=== PATIENT | female | born 1970 | race American Indian/Alaskan Native ===

== ENCOUNTER 2017-04-29 08:47 | Emergency (ER) | payer SELFPAY ==
[2017-04-29 09:10] VITALS: BP 131/57
[2017-04-29 09:33] LABS: Basophils % (Auto) 0.8 % (0.0-1.8); Eosinophils % (Auto) 0.8 % (0.0-4.3); Hematocrit 39.6 % (30.3-42.9); Mean Corpuscular HGB Conc 33 % (30-34); Mean Corpuscular Hemoglobin 28 pg (28-32); Mean Corpuscular Volume 86 fl (79-97); Platelet Count 237 K/mm3 (140-440); Red Blood Count 4.63 M/mm3 (3.65-5.03); Red Cell Distribution Width 14.5 % (13.2-15.2); White Blood Count 4.4 K/mm3 (4.5-11.0)
[2017-04-29 09:52] LABS: Anion Gap 17 mmol/L; BUN/Creatinine Ratio 20; Blood Urea Nitrogen 18 mg/dL (7-17); Calcium 8.6 mg/dL (8.4-10.2); Carbon Dioxide 24 mmol/L (22-30); Chloride 101.1 mmol/L (98-107); Glucose 93 mg/dL (65-100); Potassium 3.9 mmol/L (3.6-5.0); Sodium 138 mmol/L (137-145)
[2017-04-29] MEDS ORDERED: TORADOL IM ONE (11:47)
--- NOTE | 2017-04-29 11:53 | Emergency Department Report ---
Chief Complaint: Chest Pain Stated Complaint: RIGHT SHOULDER PAIN Time Seen by Provider: 04/29/17 11:47 - HPI History of Present Illness: Patient is a 46-year-old female with no significant past medical history who is presenting with atypical right-sided chest and shoulder pain. Patient states that when she lifts her arm she feels shocking pain that brings her "to her knees". Patient states this pain woke her up. Patient states the pain is progress 7 out of 10 in severity. Patient denies any chest heaviness shortness of breath nausea vomiting fever cough pleuritic pain at this time. - ROS Review of Systems: Review of systems normal except for those elements in HPI - Exam Vital Signs: Vital Signs 04/29/17 09:05 Temperature 98.4 F Pulse Rate 73 Respiratory 18 Rate Blood Pressure 131/57 O2 Sat by Pulse 98 Oximetry Physical Exam: Focused physical exam patient has tenderness to the right trapezius right anterior shoulder range of motion is limited secondary to pain. Lungs are clear to auscultation bilateral. Heart tones are normal S1-S2 no murmurs gallops or rubs. Abdomen is soft nontender MSE screening note: Focused history and physical exam performed. Due to findings the following was ordered: Troponin was negative EKG was within normal limits please see MLP dictation for complete EKG interpretation. Patient be given a Toradol shot and will be monitored. Patient's pain most likely musculoskeletal in origin. ED Medical Decision Making - Lab Data Result diagrams: 04/29/17 09:18 04/29/17 09:18 ED Disposition for MSE Condition: Stable Referrals: PRIMARY CARE [Primary Care Provider] - 3-5 Days
--- NOTE | 2017-04-29 12:07 | Emergency Department Report ---
ED Chest Pain HPI - General Chief Complaint: Chest Pain Stated Complaint: RIGHT SHOULDER PAIN Time Seen by Provider: 04/29/17 11:47 Source: patient Mode of arrival: Ambulatory Limitations: No Limitations - History of Present Illness Initial Comments: pt is a 46 y/o aaf with hx htn of who presents for right shoulder and chest wall pain x this am as I woke up with right arm and shoulder pain aching sore, pain exacerbated movement and lifting heavy objects there no cp no n/v no dizziness no h/a no lightheadedness . Onset/Timin -: days(s) Onset: awoke with symptoms Pain Location: right chest, other (right shoulder ) Pain Radiation: RUE Severity: moderate Severity scale (0 -10): 8 Quality: other (spasm) Consistency: intermittent Improves With: rest Worsens With: movement Treatments Prior to Arrival: none Aspirin use within the Past 7 Days: (0) No - Related Data On Oral Contraceptives: No Home Medications Medication Instructions Recorded Confirmed Last Taken Levothyroxine [Synthroid] 50 mcg PO QAM 03/31/15 03/31/15 Unknown Loratadine [Claritin] 10 mg PO DAILY 03/31/15 03/31/15 Unknown Previous Rx's Medication Instructions Recorded Last Taken Type Cyclobenzaprine [Flexeril] 10 mg PO Q8H PRN #21 tablet 04/01/15 Unknown Rx HYDROcodone/APAP 7.5-325 [[place] 1 each PO Q6HR PRN #20 tablet 04/01/15 Unknown Rx 7.5/325] Cyclobenzaprine [Flexeril] 10 mg PO BID PRN #20 tablet 04/29/17 Unknown Rx Naproxen 500 mg PO BID PRN #30 tablet 04/29/17 Unknown Rx Allergies Allergy/AdvReac Type Severity Reaction Status Date / Time Sulfa (Sulfonamide AdvReac DIFFICULTY Verified 04/01/15 01:21 Antibiotics) IN [facility] Heart Score - HEART Score History: Slightly suspicious EKG: Normal Age: 45-65 Risk factors: 1-2 risk factors Troponin: < normal limit (heart score 2) HEART Score: 2 ED Review of Systems ROS: Stated complaint: RIGHT SHOULDER PAIN Other details as noted in HPI Constitutional: denies: chills, fever Eyes: denies: eye pain, eye discharge, vision change ENT: denies: ear pain, throat pain Respiratory: denies: cough, shortness of breath, wheezing Cardiovascular: denies: chest pain, palpitations Endocrine: no symptoms reported Gastrointestinal: denies: abdominal pain, nausea, diarrhea Genitourinary: denies: urgency, dysuria, discharge Musculoskeletal: denies: back pain, joint swelling, arthralgia Skin: denies: rash, lesions Neurological: denies: headache, weakness, paresthesias Psychiatric: denies: anxiety, depression Hematological/Lymphatic: denies: easy bleeding, easy bruising ED Past Medical Hx - Past Medical History Previous Medical History?: Yes Hx Hypertension: Yes Additional medical history: Heart Murmur, HYPOTHYROIDSIM - Surgical History Past Surgical History?: Yes Additional Surgical History: c section - Social History Smoking Status: Never Smoker Substance Use Type: None - Medications Home Medications: Home Medications Medication Instructions Recorded Confirmed Last Taken Type Levothyroxine [Synthroid] 50 mcg PO QAM 03/31/15 03/31/15 Unknown History Loratadine [Claritin] 10 mg PO DAILY 03/31/15 03/31/15 Unknown History Cyclobenzaprine [Flexeril] 10 mg PO Q8H PRN #21 tablet 04/01/15 Unknown Rx HYDROcodone/APAP 7.5-325 [[place] 1 each PO Q6HR PRN #20 tablet 04/01/15 Unknown Rx 7.5/325] Cyclobenzaprine [Flexeril] 10 mg PO BID PRN #20 tablet 04/29/17 Unknown Rx Naproxen 500 mg PO BID PRN #30 tablet 04/29/17 Unknown Rx ED Physical Exam - General Limitations: No Limitations General appearance: alert, in no apparent distress - Head Head exam: Present: atraumatic, normocephalic - Eye Eye exam: Present: normal appearance, PERRL, EOMI Pupils: Present: normal accommodation - ENT ENT exam: Present: mucous membranes moist - Neck Neck exam: Present: normal inspection, full ROM. Absent: lymphadenopathy, thyromegaly - Respiratory Respiratory exam: Present: normal lung sounds bilaterally. Absent: respiratory distress, wheezes, stridor, chest wall tenderness - Cardiovascular Cardiovascular Exam: Present: regular rate, normal rhythm, normal heart sounds. Absent: systolic murmur, diastolic murmur, rubs, gallop - Expanded Cardiovascular Exam Expanded Peripheral pulses: 2+: Carotid (R), Carotid (L), Radial (R), Radial (L), Posterior Tibialis (R), Posterior Tibialis (L), Dorsalis Pedis (R), Dorsalis Pedis (L) - GI/Abdominal GI/Abdominal exam: Present: soft, normal bowel sounds. Absent: distended, tenderness, guarding, rebound, rigid, mass, bruit - Rectal Rectal exam: Present: deferred - Extremities Exam Extremities exam: Present: normal inspection, tenderness (right lateral shoulder ), normal capillary refill. Absent: full ROM, pedal edema, calf tenderness - Expanded Upper Extremity Exam Right Shoulder Exam: Present: normal inspection, full ROM, tenderness (right lateral no erythema no ecchymosis no deformity ). Absent: swelling, abrasion, laceration, ecchymosis, deformity, crepidus, dislocation, erythema, tenderness over AC joint Upper Arm exam: Present: normal inspection, full ROM Elbow exam: Present: normal inspection, full ROM Forearm Wrist exam: Present: normal inspection, full ROM Hand Wrist exam: Present: normal inspection, full ROM. Absent: tenderness Neuro motor exam: Present: wrist extension intact, thumb opposition intact, thumb IP flexion intact, thumb adduction intact, fingers 2-5 abduction intact Neurosensory exam: Present: 2-point discrimination, radial nerve intact, ulnar nerve intact, median nerve intact Vascular: Present: normal capillary refill, radial pulse, brachial pulse, ulnar pulse. Absent: vascular compromise, Pallo, pulse deficit radial art, pulse deficit ulnar art, pulse deficit brachial art - Back Exam Back exam: Present: normal inspection, full ROM, tenderness. Absent: CVA tenderness (R), CVA tenderness (L), muscle spasm, paraspinal tenderness, vertebral tenderness - Neurological Exam Neurological exam: Present: alert, oriented X3, CN II-XII intact, normal gait - Psychiatric Psychiatric exam: Present: normal affect, normal mood - Skin Skin exam: Present: warm, dry, intact, normal color. Absent: rash ED Course Vital Signs 04/29/17 09:05 Temperature 98.4 F Pulse Rate 73 Respiratory 18 Rate Blood Pressure 131/57 O2 Sat by Pulse 98 Oximetry MCKAY score - Mckay Score Age > 65: (0) No Aspirin use within the Past 7 Days: (0) No 3 or more CAD Risk Factors: (1) Yes 2 or more Angina events in past 24 hrs: (0) No Known CAD with more than 50% Stenosis: (0) No Elevated Cardiac Markers: (0) No ST Deviation Greater than 0.5mm: (0) No MCKAY Score: 1 ED Medical Decision Making - Lab Data Result diagrams: 04/29/17 09:18 04/29/17 09:18 - EKG Data EKG shows normal: sinus rhythm Rate: normal - EKG Data When compared to previous EKG there are: previous EKG unavailable Interpretation: normal EKG - Medical Decision Making pt present for what appears to be right shoulder musculoskeltal pain right shoulder sudden onset radiating to right upper chest wall pain exacerbated by movement pt denies sob no n/v no dizziness no light headeness exam: right lateral shoulder muscle pain rom intact no deformity no swelling arm drop and open can intact EKG NSR no ectopy NSTEMI, labs normal trop normal, heart score 2 , mckay:1 pain is improved with toradol IM, rom improve chest tenderness improved plan: nsaids, muscle relaxant, moist heat therapy and follow up with pcp in in 2-3 days, pt verbalized agreement and understanding of same, pt for dc in stable condition at this time pt is a/ox 3 ambulator gait steady no acute distress at this time Critical care attestation.: If time is entered above; I have spent that time in minutes in the direct care of this critically ill patient, excluding procedure time. ED Disposition Clinical Impression: Right shoulder strain Qualifiers: Encounter type: initial encounter Qualified Code(s): S46.911A - Strain of unspecified muscle, fascia and tendon at shoulder and upper arm level, right arm , initial encounter Disposition: DC-01 TO HOME OR SELFCARE Is pt being admited?: No Does the pt Need Aspirin: No Condition: Good Instructions: Musculoskeletal Pain (ED) Prescriptions: Cyclobenzaprine [Flexeril] 10 mg PO BID PRN #20 tablet PRN Reason: Muscle Spasm Naproxen 500 mg PO BID PRN #30 tablet PRN Reason: Pain Referrals: PRIMARY CARE,MD [Primary Care Provider] - 3-5 Days Forms: Work/School Release Form(ED) Time of Disposition: 12:22
== END 2017-04-29 12:25 | disposition home or self-care (01) ==
LOC: ED 08:47
DX: S46.911A Strain of unspecified muscle, fascia and tendon at shoulder and upper arm level, right arm, initial encounter (principal); I10 Essential (primary) hypertension; E03.9 Hypothyroidism, unspecified; Z88.2 Allergy status to sulfonamides; X58.XXXA Exposure to other specified factors, initial encounter; Y93.89 Activity, other specified; Y99.8 Other external cause status; Y92.89 Other specified places as the place of occurrence of the external cause
CPT/HCPCS: 36415; 80048; 84484; 84703; 85025; 93005; 93010; 96372; 99284; J1885

== ENCOUNTER 2018-09-25 23:52 | Emergency (ER) | payer SELFPAY ==
[2018-09-26 00:36] VITALS: BP 143/53
== END 2018-09-26 02:56 | disposition left against medical advice (07) ==
LOC: ED 23:52
DX: R51 Headache (principal); L53.9 Erythematous condition, unspecified; Z53.21 Procedure and treatment not carried out due to patient leaving prior to being seen by health care provider

== ENCOUNTER 2018-11-17 12:41 | Emergency (ER) | payer SELFPAY ==
[2018-11-17 13:36] VITALS: BP 137/59
--- NOTE | 2018-11-17 13:41 | Emergency Department Report ---
Blank Doc - Documentation Documentation: Patient reports that that she hives 4 days ago which went away now with knot to extremities , back rt armpit. Reports knots under skin and difficulty moving arms due to knot No h/o blood clots. recently travelled from [facility]. No swelling to legs. No CP VSS stable Noted visible and invisible palpable knots to body surface. TTP PT stable
--- NOTE | 2018-11-17 14:24 | Emergency Department Report ---
ED Rash HPI - HPI Chief Complaint: Skin Rash Stated Complaint: RASH Time Seen by Provider: 11/17/18 13:35 Duration: 5 Days Location: Other Suspected Cause: Unknown Rash Symptoms: No Itching, No Facial Swelling, No Tongue/Oral Swelling, No Breathing Difficulties, No Choking Sensation, No Wheezing/Dyspnea, No Peeling, No Blistering, No Fever, No Lightheaded, No Malaise, No Myalgias Severity: mild Other History: Patient is a very pleasant 48-year-old who comes to the ER today with an nodule underneath her right arm near the elbow and one on her right leg just distal to the groin. She states these came up after she had a rash. It was a flat red rash that came without systemic symptoms and no fever, and then went away. Then she noticed these nodules. This has been going on for a couple weeks. She has recently traveled to [place]. I asked her if she could have these all along and not noticed him. However, she states that she has been sunbathing and she would've noticed them in [place] had they been there. Patient is ambulatory, nontoxic she is without fever. Patient denies any recent chills or fever. Past medical history is positive for hypothyroidism. She is not taking her Synthroid because she is out of. She also has been told from time to time by different providers that she has high blood pressure. She is not on any blood pressure medicines. Her blood pressure is 137/59 today. Zackary cherry denies cigarettes or alcohol or drugs. Patient's mother of cancer. Her father of a stroke. ED Review of Systems ROS: Stated complaint: RASH Other details as noted in HPI Comment: All other systems reviewed and negative ED Past Medical Hx - Past Medical History Hx Hypertension: Yes Additional medical history: Heart Murmur, HYPOTHYROIDSIM - Surgical History Additional Surgical History: c section x4 - Family History Family history: no significant - Social History Smoking Status: Never Smoker Substance Use Type: None - Medications Home Medications: Home Medications Medication Instructions Recorded Confirmed Last Taken Type Loratadine [Claritin] 10 mg PO DAILY 03/31/15 03/31/15 Unknown History Cyclobenzaprine [Flexeril] 10 mg PO Q8H PRN #21 tablet 04/01/15 Unknown Rx HYDROcodone/APAP 7.5-325 [[place] 1 each PO Q6HR PRN #20 tablet 04/01/15 Unknown Rx 7.5/325] Cyclobenzaprine [Flexeril] 10 mg PO BID PRN #20 tablet 04/29/17 Unknown Rx Naproxen 500 mg PO BID PRN #30 tablet 04/29/17 Unknown Rx Amoxicillin [Trimox CAP] 500 mg PO Q8H #30 capsule 11/17/18 Unknown Rx Levothyroxine [Synthroid] 50 mcg PO QAM #30 tablet 11/17/18 Unknown Rx Rash Exam - Exam General: Vital signs noted. No distress. Alert and acting appropriately. WDWN patient in NAD VS per RN flow sheet Alert and oriented to person, place and time. S1-S2. No S3 or S4. No systolic or diastolic murmur. No JVD. No pitting edema. Lungs clear to auscultation bilaterally anteriorly and posteriorly. Abdomen soft nontender bowel sounds X4 Moves all extremities well. Mood and affect appropriate. PALPABLE NODULE/NODE RUE AND RLE NO RASH HEENT: No Periorbital Edema, No Conjuctival Injection, No Chemosis, No Perioral Edema, No Tongue Edema, No Uvular Edema, No Compromised Airway, No Drooling Lungs: Yes Good Air Exchange, Yes Other Abnormal Lung Sounds, No Wheezes, No Ronchi, No Stridor, No Cough, No Labored Respirations, No Retractions, No Use of Accessory Muscles Heart: Yes Regular, No Murmur Front/Back of Body, Lg (Color): 1 - nodule no 1; size of marble. consistency of a lipoma. more superficial than a node would be. no pain. mobile. not fixed. no abscess. no other lesions/nodes/masses in that area. 2 - nodule no 2; size of marble. consistency of a lipoma. more superficial than a node would be. no pain. mobile. not fixed. no abscess. no other lesions/nodes/masses in that area. Skin: No Urticarial Rash, No Maculopapular Rash, No Morbilliform rash, No Bulla(e), No Excoriations, No Weeping, No Tenderness, No Erythema, No Edema, No Encrustations Other: Positive: Abdomen Normal, Neurologic Normal, Musculoskeletal Normal ED Course Vital Signs 11/17/18 13:33 Temperature 97.9 F Pulse Rate 72 Respiratory 16 Rate Blood Pressure 137/59 O2 Sat by Pulse 100 Oximetry ED Medical Decision Making - Lab Data Result diagrams: 11/17/18 14:57 11/17/18 14:57 - Medical Decision Making Vital Signs 11/17/18 13:33 Temperature 97.9 F Pulse Rate 72 Respiratory 16 Rate Blood Pressure 137/59 O2 Sat by Pulse 100 Oximetry Lab Results 11/17/18 11/17/18 Range/Units 14:57 14:57 WBC 5.0 (4.5-11.0) K/mm3 RBC 4.71 (3.65-5.03) M/mm3 Hgb 12.9 (10.1-14.3) gm/dl Hct 39.5 (30.3-42.9) % MCV 84 (79-97) fl MCH 28 (28-32) pg MCHC 33 (30-34) % RDW 15.5 H (13.2-15.2) % Plt Count 264 (140-440) K/mm3 ESR 45 (0-20) mm/Hr Sodium 144 (137-145) mmol/L Potassium 3.9 (3.6-5.0) mmol/L Chloride 106.0 (98-107) mmol/L Carbon Dioxide 26 (22-30) mmol/L Anion Gap 16 mmol/L BUN 17 (7-17) mg/dL Creatinine 0.9 (0.7-1.2) mg/dL Estimated GFR > 60 ml/min BUN/Creatinine Ratio 19 % Glucose 101 H (65-100) mg/dL Calcium 9.4 (8.4-10.2) mg/dL VSS no fever non toxic otherwise healthy labs noted wbc normmal sed normal given recent rash will treat as lymphadenopathy pt has been told if this does not go away to follow up with derm. referrals given. on dc vss. taking po. no complaints. - Differential Diagnosis lipoma/ benign nodule or cyst/ lymphadenopathy Critical care attestation.: If time is entered above; I have spent that time in minutes in the direct care of this critically ill patient, excluding procedure time. ED Disposition Clinical Impression: Lymphadenopathy, Medication refill, Hypothyroidism Disposition: DC-01 TO HOME OR SELFCARE Is pt being admited?: No Does the pt Need Aspirin: No Condition: Stable Instructions: Lymphadenopathy (ED) Additional Instructions: DIET TOLERATED MEDS ORDERED TODAY IN ER FOLLOW INSTRUCTIONS ON THE BOTTLE FOLLOW UP PCP WITHIN 48 HOURS TO ENSURE YOU ARE GETTING BETTER ACTIVITY TOLERATED MOTRIN OR TYLENOL FOR PAIN OR FEVER RETURN TO THE ER FOR WORSENING SYMPTOMS NOT RELIEVED BY YOUR MEDICATIONS. Prescriptions: Levothyroxine [Synthroid] 50 mcg PO QAM #30 tablet Amoxicillin [Trimox CAP] 500 mg PO Q8H #30 capsule Referrals: HOLGER ROMERO MD [Referring] - 3-5 Days DESHAUN MCKEON MD [Staff Physician] - 3-5 Days Time of Disposition: 16:16
[2018-11-17 15:15] LABS: Hematocrit 39.5 % (30.3-42.9); Hemoglobin 12.9 gm/dl (10.1-14.3); Mean Corpuscular HGB Conc 33 % (30-34); Mean Corpuscular Volume 84 fl (79-97); Platelet Count 264 K/mm3 (140-440); Red Blood Count 4.71 M/mm3 (3.65-5.03); Red Cell Distribution Width 15.5 % (13.2-15.2)
[2018-11-17 15:38] LABS: BUN/Creatinine Ratio 19; Blood Urea Nitrogen 17 mg/dL (7-17); Calcium 9.4 mg/dL (8.4-10.2); Hemolysis Index 2
[2018-11-17 15:50] LABS: Erythrocyte Sedimentation Rate 45 mm/Hr (0-20)
== END 2018-11-17 16:30 | disposition home or self-care (01) ==
LOC: ED 12:41
DX: R59.1 Generalized enlarged lymph nodes (principal); E03.9 Hypothyroidism, unspecified; I10 Essential (primary) hypertension
CPT/HCPCS: 36415; 80048; 85027; 85652

== ENCOUNTER 2020-03-12 20:10 | Emergency (ER) | payer OTHER ==
--- NOTE | 2020-03-13 01:17 | XRay Report ---
CERVICAL SPINE 3 VIEWS INDICATION / CLINICAL INFORMATION: Neck pain. COMPARISON: None available. FINDINGS: BONES / JOINT(S): There is mild anterior spurring at C5-6 without significant disc space narrowing. T he other disc spaces are normal. There is no evidence of fracture, subluxation or destructive lesion. SOFT TISSUES: The prevertebral soft tissues are normal. ADDITIONAL FINDINGS: The lung apices are clear. Signer Name: Vahe Tomlin MD Signed: 03/13/2020 1:12 AM Workstation Name: [id number]
[2020-03-13] MEDS ORDERED: HYDROcodone/ACETAMINOPHEN 5-325 MG TAB PO ONE (01:31)
[2020-03-13] MEDS ORDERED: HYDROcodone/ACETAMINOPHEN 5-325 MG TAB ONE (01:32)
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
[2020-03-13 02:28] VITALS: BP 146/68
== END 2020-03-13 02:30 | disposition home or self-care (01) ==
LOC: ED 20:10
DX: S16.1XXA Strain of muscle, fascia and tendon at neck level, initial encounter (principal); M79.10 Myalgia, unspecified site; I10 Essential (primary) hypertension; Z79.2 Long term (current) use of antibiotics; Z79.899 Other long term (current) drug therapy; Z88.2 Allergy status to sulfonamides; V49.49XA Driver injured in collision with other motor vehicles in traffic accident, initial encounter; Y93.89 Activity, other specified; Y92.488 Other paved roadways as the place of occurrence of the external cause; Y99.8 Other external cause status
CPT/HCPCS: 72040; 99283

== ENCOUNTER 2021-08-02 07:16 | Emergency (ER) | payer SELFPAY ==
[2021-08-02] MEDS ORDERED: diphenhydrAMINE 50 MG/ML VIAL IV ONE (07:35)
[2021-08-02] MEDS ORDERED: DICYCLOMINE 20 MG TAB PO ONE (07:35)
[2021-08-02] MEDS ORDERED: SODIUM CHLORIDE 0.9% 1000 ML 1,000 ML IV ONE (07:35)
[2021-08-02] MEDS ORDERED: METOCLOPRAMIDE 10 MG/2 ML INJ IV ONE (07:35)
[2021-08-02] MEDS ORDERED: FAMOTIDINE 20 MG/2 ML INJ IV ONE (07:35)
--- NOTE | 2021-08-02 09:11 | Emergency Department Report ---
ED Abdominal Pain HPI - General Chief Complaint: Abdominal Pain Stated Complaint: CHEST PAIN Time Seen by Provider: 08/02/21 07:27 Source: patient Mode of arrival: Ambulatory Limitations: No Limitations - History of Present Illness Initial Comments: This is a 50-year-old female nontoxic, well nourished in appearance, no acute signs of distress presents to the ED with c/o of nausea and upper abdominal pain several days. Patient denies any vomiting. Patient describes abdominal pain as cramping and aching with level of 8/10 to upper abdominal with worse to the left side. Patient denies chest pain, short of breath, fever, hemoptysis, blood in stool, chills, headache, stiff neck, numbness or tingling. Patient denies any diarrhea or constipation. Denies any blood in stool. Patient denies any recent travels. Patient stated allergies to sulfa. MD Complaint: abdominal pain -: days(s) Location: LUQ, epigastric Radiation: none Migration to: no migration Severity: mild Severity scale (0 -10): 8 Quality: cramping, aching Consistency: constant Improves With: nothing Worsens With: nothing Associated Symptoms: nausea. denies: vomiting, diarrhea, fever, chills, constipation, dysuria, hematemesis, hematochezia, melena, hematuria, anorexia, syncope - Related Data Home Medications Medication Instructions Recorded Confirmed Last Taken Loratadine (Nf) [Claritin] 10 mg PO DAILY 03/31/15 03/31/15 Unknown Previous Rx's Medication Instructions Recorded Last Taken Type Cyclobenzaprine [Flexeril] 10 mg PO Q8H PRN #21 tablet 04/01/15 Unknown Rx HYDROcodone/APAP 7.5-325 [[place] 1 each PO Q6HR PRN #20 tablet 04/01/15 Unknown Rx 7.5/325] Cyclobenzaprine [Flexeril] 10 mg PO BID PRN #20 tablet 04/29/17 Unknown Rx Naproxen 500 mg PO BID PRN #30 tablet 04/29/17 Unknown Rx Amoxicillin [Trimox CAP] 500 mg PO Q8H #30 capsule 11/17/18 Unknown Rx Levothyroxine [Synthroid] 50 mcg PO QAM #30 tablet 11/17/18 Unknown Rx Ketorolac [Toradol] 10 mg PO Q6H PRN #15 tablet 03/13/20 Unknown Rx methOCARBAMOL [Robaxin] 750 mg PO Q8H PRN #21 tablet 03/13/20 Unknown Rx Dicyclomine [Bentyl] 10 mg PO BID PRN #10 capsule 08/02/21 Unknown Rx Ondansetron [Zofran Odt] 4 mg PO Q12H PRN #12 tab.rapdis 08/02/21 Unknown Rx Allergies Allergy/AdvReac Type Severity Reaction Status Date / Time Sulfa (Sulfonamide AdvReac DIFFICULTY Verified 11/17/18 12:43 Antibiotics) IN [facility] ED Review of Systems ROS: Stated complaint: CHEST PAIN Other details as noted in HPI Comment: All other systems reviewed and negative Constitutional: denies: chills, fever Eyes: denies: eye pain, eye discharge, vision change ENT: denies: ear pain, throat pain Respiratory: denies: cough, shortness of breath, wheezing Cardiovascular: denies: chest pain, palpitations Endocrine: no symptoms reported Gastrointestinal: abdominal pain, nausea, vomiting. denies: diarrhea, constipation, hematemesis, melena, hematochezia Genitourinary: denies: urgency, dysuria, discharge Musculoskeletal: denies: back pain, joint swelling, arthralgia Skin: denies: rash, lesions Neurological: denies: headache, weakness, paresthesias Psychiatric: denies: anxiety, depression Hematological/Lymphatic: denies: easy bleeding, easy bruising ED Past Medical Hx - Past Medical History Hx Hypertension: Yes Additional medical history: Heart Murmur, HYPOTHYROIDSIM - Surgical History Additional Surgical History: c section x4 - Social History Smoking Status: Never Smoker Substance Use Type: None - Medications Home Medications: Home Medications Medication Instructions Recorded Confirmed Last Taken Type Loratadine (Nf) [Claritin] 10 mg PO DAILY 03/31/15 03/31/15 Unknown History Cyclobenzaprine [Flexeril] 10 mg PO Q8H PRN #21 tablet 04/01/15 Unknown Rx HYDROcodone/APAP 7.5-325 [[place] 1 each PO Q6HR PRN #20 tablet 04/01/15 Unknown Rx 7.5/325] Cyclobenzaprine [Flexeril] 10 mg PO BID PRN #20 tablet 04/29/17 Unknown Rx Naproxen 500 mg PO BID PRN #30 tablet 04/29/17 Unknown Rx Amoxicillin [Trimox CAP] 500 mg PO Q8H #30 capsule 11/17/18 Unknown Rx Levothyroxine [Synthroid] 50 mcg PO QAM #30 tablet 11/17/18 Unknown Rx Ketorolac [Toradol] 10 mg PO Q6H PRN #15 tablet 03/13/20 Unknown Rx methOCARBAMOL [Robaxin] 750 mg PO Q8H PRN #21 tablet 03/13/20 Unknown Rx Dicyclomine [Bentyl] 10 mg PO BID PRN #10 capsule 08/02/21 Unknown Rx Ondansetron [Zofran Odt] 4 mg PO Q12H PRN #12 tab.rapdis 08/02/21 Unknown Rx ED Physical Exam - General Limitations: No Limitations General appearance: alert, in no apparent distress - Head Head exam: Present: atraumatic, normocephalic - Eye Eye exam: Present: normal appearance - Neck Neck exam: Present: normal inspection, full ROM. Absent: lymphadenopathy - Respiratory Respiratory exam: Present: normal lung sounds bilaterally. Absent: respiratory distress, wheezes, rales, rhonchi, stridor, chest wall tenderness, accessory muscle use, decreased breath sounds, prolonged expiratory - Cardiovascular Cardiovascular Exam: Present: regular rate, normal rhythm, normal heart sounds. Absent: bradycardia, tachycardia, irregular rhythm, systolic murmur, diastolic murmur, rubs, gallop - GI/Abdominal GI/Abdominal exam: Present: soft, tenderness (epigastric and left upper abdomen), normal bowel sounds. Absent: distended, guarding, rebound, rigid - Extremities Exam Extremities exam: Present: normal inspection - Back Exam Back exam: Present: normal inspection, full ROM. Absent: tenderness, CVA tenderness (R), CVA tenderness (L), muscle spasm, paraspinal tenderness, vertebral tenderness, rash noted - Neurological Exam Neurological exam: Present: alert, oriented X3, normal gait - Psychiatric Psychiatric exam: Present: normal affect, normal mood - Skin Skin exam: Present: warm, dry, intact, normal color. Absent: rash ED Course Vital Signs 08/02/21 07:23 Temperature 97.8 F Pulse Rate 67 Respiratory 18 Rate Blood Pressure 179/113 [Right] O2 Sat by Pulse 99 Oximetry - Reevaluation(s) Reevaluation #1: 08/02/21 09:11 Patient is speaking in full sentences with no signs of distress noted. ED Medical Decision Making - Lab Data Result diagrams: 08/02/21 08:56 08/02/21 08:56 Lab Results 08/02/21 08/02/21 08/02/21 Range/Units 08:56 08:56 08:56 WBC 4.2 L (4.5-11.0) K/mm3 RBC 4.24 (3.65-5.03) M/mm3 Hgb 11.7 (10.1-14.3) gm/dl Hct 35.8 (30.3-42.9) % MCV 85 (79-97) fl MCH 28 (28-32) pg MCHC 33 (30-34) % RDW 14.6 (13.2-15.2) % Lymph % (Auto) Sas [employer] Developer Sodium 146 H (137-145) mmol/L Potassium 4.1 (3.6-5.0) mmol/L Chloride 106.8 (98-107) mmol/L Carbon Dioxide 24 (22-30) mmol/L Anion Gap 19 mmol/L BUN 14 (7-17) mg/dL Creatinine 0.8 (0.6-1.2) mg/dL Estimated GFR > 60 ml/min BUN/Creatinine Ratio 18 % Glucose 94 (65-100) mg/dL Calcium 9.9 (8.4-10.2) mg/dL Total Bilirubin 0.30 (0.1-1.2) mg/dL AST 20 (5-40) units/L ALT 23 (7-56) units/L Alkaline Phosphatase 88 (35-129) units/L Total Protein 7.8 (6.3-8.2) g/dL Albumin 4.9 (3.9-5) g/dL Albumin/Globulin Ratio 1.7 % Lipase 34 (13-60) units/L HCG, Qual Negative (Negative) Urine Color (Yellow) Urine Turbidity (Clear) Urine pH (5.0-7.0) Ur Specific [place] (1.003-1.030) Urine Protein (Negative) mg/dL Urine Glucose (UA) (Negative) mg/dL Urine Ketones (Negative) mg/dL Urine Blood (Negative) Urine Nitrite (Negative) Urine Bilirubin (Negative) Urine Urobilinogen (<2.0) mg/dL Ur Leukocyte Esterase (Negative) Urine WBC (Auto) (0.0-6.0) /HPF Urine RBC (Auto) (0.0-6.0) /HPF U Epithel Cells (Auto) (0-13.0) /HPF Urine Bacteria (Auto) (Negative) /HPF Urine Mucus /HPF 08/02/21 Range/Units Unknown WBC (4.5-11.0) K/mm3 RBC (3.65-5.03) M/mm3 Hgb (10.1-14.3) gm/dl Hct (30.3-42.9) % MCV (79-97) fl MCH (28-32) pg MCHC (30-34) % RDW (13.2-15.2) % Lymph % (Auto) Sodium (137-145) mmol/L Potassium (3.6-5.0) mmol/L Chloride (98-107) mmol/L Carbon Dioxide (22-30) mmol/L Anion Gap mmol/L BUN (7-17) mg/dL Creatinine (0.6-1.2) mg/dL Estimated GFR ml/min BUN/Creatinine Ratio % Glucose (65-100) mg/dL Calcium (8.4-10.2) mg/dL Total Bilirubin (0.1-1.2) mg/dL AST (5-40) units/L ALT (7-56) units/L Alkaline Phosphatase (35-129) units/L Total Protein (6.3-8.2) g/dL Albumin (3.9-5) g/dL Albumin/Globulin Ratio % Lipase (13-60) units/L HCG, Qual (Negative) Urine Color Colorless (Yellow) Urine Turbidity Clear (Clear) Urine pH 6.0 (5.0-7.0) Ur Specific [place] 1.003 (1.003-1.030) Urine Protein <15 mg/dl (Negative) mg/dL Urine Glucose (UA) Neg (Negative) mg/dL Urine Ketones Neg (Negative) mg/dL Urine Blood Neg (Negative) Urine Nitrite Neg (Negative) Urine Bilirubin Neg (Negative) Urine Urobilinogen < 2.0 (<2.0) mg/dL Ur Leukocyte Esterase Neg (Negative) Urine WBC (Auto) 2.0 (0.0-6.0) /HPF Urine RBC (Auto) < 1.0 (0.0-6.0) /HPF U Epithel Cells (Auto) 7.0 (0-13.0) /HPF Urine Bacteria (Auto) 1+ (Negative) /HPF Urine Mucus Few /HPF - Radiology Data [facility] [address] [place] [address] Cat Scan Report Signed Patient: ROSHAN GUTIÉRREZ MR# : [id number] : 1970 Acct:[id number] Age/Sex: 50 / F ADM Date: 08/02/21 Loc: ED Attending Dr: Ordering Physician: JEFFREY CHAN NP Date of Service: 08/02/21 Procedure(s): CT abdomen pelvis w con Accession Number(s): [id number] cc: JEFFREY CHAN NP CT ABDOMEN AND PELVIS WITH IV CONTRAST INDICATION: abdominal pain omnipaque 300 100ml. COMPARISON: None available. TECHNIQUE: Axial CT images were obtained through the abdomen and pelvis after 100 mL Omn ipaque [address] scans at this location are performed using CT dose reduction for ALARA by means of automated exposure control. FINDINGS -- ABDOMEN: Lung Bases: No acute abnormality. Liver: Normal. Gallbladder: Normal. Bile Ducts: Normal. Pancreas: Normal. Spleen: Normal. Adrenals: Normal. Right Kidney and Proximal Ureter: Normal. Left Kidney and Proximal Ureter: Severely atrophic. Stomach and Bowel: Normal. Lymph Nodes: No significant adenopathy. Aorta: No significant abnormality. IVC: Normal. Additional Findings: Small fat-containing periumbilical hernia.. FINDINGS -- PELVIS: Urinary Bladder and Distal Ureters: Normal. Reproductive Organs: Enlarged left adnexa that may contain several cysts. The left adnexa measures 3.8 cm in diameter. 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 Appendix: Normal. Bowel: No acute abnormality. Free Fluid: None. Lymph Nodes: No significant adenopathy. Additional Findings: None. Skeletal System: No acute abnormality. IMPRESSION: Asymmetric enlargement of the left adnexa with respect to the right. It is unclear if there is evidence of underlying complex cyst or solid mass. Pelvic ultrasound is suggested for further evaluation. 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 Signer Name: Junito Holloway MD Signed: 08/02/2021 10:47 AM Workstation Name: [id number] Transcribed By: DAVIDE Dictated By: Junito Holloway MD Electronically Authenticated By: Junito Holloway MD Signed Date/Time: 08/02/21 1047 DD/ 42 TD/TT: [facility] [address] [place] [address] Ultrasound Report Signed Patient: ROSHAN GUTIÉRREZ MR# : [id number] : 1970 Acct:[id number] Age/Sex: 50 / F ADM Date: 08/02/21 Loc: ED Attending Dr: Ordering Physician: JEFFREY CHAN NP Date of Service: 08/02/21 Procedure(s): US abdomen complete Accession Number(s): [id number] cc: JEFFREY CHAN NP ULTRASOUND ABDOMEN, COMPLETE INDICATION: abd pain with nausea. COMPARISON: No relevant prior imaging study available. FINDINGS: Pancreas: No significant abnormality. Abdominal Aorta: No significant abnormality. IVC: No significant abnormality. Liver: No significant abnormality. Normal hepatopedal blood flow in the main portal vein. Gallbladder: No significant abnormality. Bile ducts: No significant abnormality. Common bile duct measures 3 mm. Kidneys: Right: No significant abnormality. Left: Not visualized. Spleen: No significant abnormality. Free fluid: None. Additional Findings: None. IMPRESSION: 1. No sonographic abnormality of the abdomen. Signer Name: Junito Holloway MD Signed: 08/02/2021 9:25 AM Workstation Name: [id number] Transcribed By: DAVIDE Dictated By: Junito Holloway MD Electronically Authenticated By: Junito Holloway MD Signed Date/Time: 08/02/21924 DD/ 3 TD/TT: - Medical Decision Making This is a 50-year-old female that presents with abdominal pain. Patient is stable and was examined by me. Exam shows only upper abdominal pains. Negative signs of symptoms of appendicitis. Labs obtained. UA obtained. CT and US of abdomen obtained and dictated by the radiologist. Patient is notified of the report with no questions noted by the patient. Vital signs are stable prior to discharge. Patient received medical treatment in the ED which patient stated symptoms has resovled and subsided. Was instructed note to operate any machinery due to possible drowsiness and stated someone will drive the patient home. A by mouth challenge has been obtained and patient tolerated well with no nausea vomiting. Patient was also instructed to Follow-up with a primary care and binder lockstitch doctor in 3-5 days or if symptoms worsen and continue return to emergency room as soon as possible. At time of discharge, the patient does not seem toxic or ill in appearance. No acute signs of distress noted. Patient agrees to discharge treatment plan of care. No further questions noted by the patient. Critical care attestation.: If time is entered above; I have spent that time in minutes in the direct care of this critically ill patient, excluding procedure time. ED Disposition Clinical Impression: Adnexal mass, Nausea Abdominal pain Qualifiers: Abdominal location: upper abdomen, unspecified Qualified Code(s): R10.10 - Upper abdominal pain, unspecified Disposition: HOME / SELF CARE / HOMELESS Is pt being admited?: No Does the pt Need Aspirin: No Condition: Stable Instructions: Abdominal Pain (ED) Additional Instructions: Follow-up with a primary care and binder lockstitch doctor in 3-5 days or if symptoms worsen and continue return to emergency room as soon as possible. Prescriptions: Dicyclomine [Bentyl] 10 mg PO BID PRN #10 capsule PRN Reason: abdominal pain Ondansetron [Zofran Odt] 4 mg PO Q12H PRN #12 tab.rapdis PRN Reason: Nausea Referrals: [facility] [Provider Group] - 3-5 Days JORGE ALBERTO GALE MD [Staff Physician] - 3-5 Days [facility] [Primary Care Provider] - 3-5 Days [facility] [Provider Group] - 3-5 Days [facility] [Provider Group] - 3-5 Days Forms: Work/School Release Form(ED) Time of Disposition: 11:56
--- NOTE | 2021-08-02 09:29 | Ultrasound Report ---
ULTRASOUND ABDOMEN, COMPLETE INDICATION: abd pain with nausea. COMPARISON: No relevant prior imaging study available. FINDINGS: Pancreas: No significant abnormality. Abdominal Aorta: No significant abnormality. IVC: No significant abnormality. Liver: No significant abnormality. Normal hepatopedal blood flow in the main portal vein. Gallbladder: No significant abnormality. Bile ducts: No significant abnormality. Common bile duct measures 3 mm. Kidneys: Right: No significant abnormality. Left: Not visualized. Spleen: No significant abnormality. Free fluid: None. Additional Findings: None. IMPRESSION: 1. No sonographic abnormality of the abdomen. Signer Name: Junito Holloway MD Signed: 08/02/2021 9:25 AM Workstation Name: [id number]
[2021-08-02 09:40] LABS: Bacteria,Urine 1+ /HPF (Negative); Bilirubin,Urine NEG (Negative); Blood,Urine NEG (Negative); Color,Urine Colorless (Yellow); Mucus,Urine FEW /HPF; Protein,Urine <15 mg/dL mg/dL (Negative); RBC,Urine < 1.0 /HPF (0.0-6.0); Urobilinogen,Urine < 2.0 mg/dL (<2.0)
[2021-08-02 09:52] LABS: Alanine Aminotransferase 23 units/L (7-56); Albumin 4.9 g/dL (3.9-5); BUN/Creatinine Ratio 18; Blood Urea Nitrogen 14 mg/dL (7-17); Calcium 9.9 mg/dL (8.4-10.2); Hemolysis Index 27
--- NOTE | 2021-08-02 10:51 | Cat Scan Report ---
CT ABDOMEN AND PELVIS WITH IV CONTRAST INDICATION: abdominal pain omnipaque 300 100ml. COMPARISON: None available. TECHNIQUE: Axial CT images were obtained through the abdomen and pelvis after 100 mL Omnipaque [address] scans at this location are performed using CT dose reduction for ALARA by means of automated e xposure control. FINDINGS -- ABDOMEN: Lung Bases: No acute abnormality. Liver: Normal. Gallbladder: Normal. Bile Ducts: Normal. Pancreas: Normal. Spleen: Normal. Adrenals: Normal. Right Kidney and Proximal Ureter: Normal. Left Kidney and Proximal Ureter: Severely atrophic. Stomach and Bowel: Normal. Lymph Nodes: No significant adenopathy. Aorta: No significant abnormality. IVC: Normal. Additional Findings: Small fat-containing periumbilical hernia.. FINDINGS -- PELVIS: Urinary Bladder and Distal Ureters: Normal. Reproductive Organs: Enlarged left adnexa that may contain several cysts. The left adnexa measures 3. 8 cm in diameter. 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 Appendix: Normal. Bowel: No acute abnormality. Free Fluid: None. Lymph Nodes: No significant adenopathy. Additional Findings: None. Skeletal System: No acute abnormality. IMPRESSION: Asymmetric enlargement of the left adnexa with respect to the right. It is unclear if there is eviden ce of underlying complex cyst or solid mass. Pelvic ultrasound is suggested for further evaluation. P ossible arcuate/didelphys uterus Signer Name: Junito Holloway MD Signed: 08/02/2021 10:47 AM Workstation Name: [id number]
[2021-08-02 12:42] LABS: Red Blood Count TNR M/mm3 (3.65-5.03)
[2021-08-02 12:44] LABS: Hematocrit TNR % (30.3-42.9); Hemoglobin TNR gm/dl (10.1-14.3); Mean Corpuscular Volume TNR fl (79-97)
[2021-08-02 12:45] LABS: Basophils # (Auto) TNR K/mm3 (0.0-0.1); Basophils % (Auto) TNR % (0.0-1.8); Eosinophils # (Auto) TNR K/mm3 (0.0-0.4); Eosinophils % (Auto) TNR % (0.0-4.3); Lymphocytes # (Auto) TNR K/mm3 (1.2-5.4); Lymphocytes % (Auto) TNR % (13.4-35.0); Mean Corpuscular HGB Conc TNR % (30-34); Mean Platelet Volume TNR fl (6-12); Monocytes # (Auto) TNR K/mm3 (0.0-0.8); Monocytes % (Auto) TNR % (0.0-7.3); Platelet Count TNR K/mm3 (140-440); Red Cell Distribution Width TNR % (13.2-15.2); Total Cells Counted TNR
[2021-08-02 13:09] VITALS: BP 163/62
[2021-08-02 13:26] LABS: Hemoglobin 12.3 gm/dl (10.1-14.3); Mean Corpuscular HGB Conc 32 % (30-34); Mean Corpuscular Volume 85 fl (79-97); Platelet Count 248 K/mm3 (140-440); Red Blood Count 4.48 M/mm3 (3.65-5.03); Red Cell Distribution Width 14.6 % (13.2-15.2)
[2021-08-02 17:26] LABS: Large Platelets Rare; Platelet Estimate Consistent w Auto; RBC Morphology Normal; Total Cells Counted 100
== END 2021-08-02 13:12 | disposition home or self-care (01) ==
LOC: ED 07:16
DX: R19.09 Other intra-abdominal and pelvic swelling, mass and lump (principal); R10.12 Left upper quadrant pain; R11.0 Nausea; R10.13 Epigastric pain; I10 Essential (primary) hypertension; E03.9 Hypothyroidism, unspecified; Z98.890 Other specified postprocedural states; Z79.899 Other long term (current) drug therapy
CPT/HCPCS: 36415; 74177; 76700; 80053; 81001; 83690; 84703; 85007; 85025; 96361; 96374; 96375; 99284; J1200; J2765; J3490; J7030; Q9967; Q0162